=== PATIENT | female | born 1980 | race Asian ===

== ENCOUNTER 2017-12-01 00:30 | Inpatient (IN) | payer SELFPAY ==
[~2017-12-01] VITALS: Ht 158 cm; Wt 61.2 kg
[2017-12-01] MEDS ORDERED: LACTATED RINGERS 1,000 ML IV SCH (01:32)
[2017-12-01] MEDS ORDERED: CITRIC ACID/SODIUM CITRATE 30 ML UDC PO SCH (01:35)
[2017-12-01 01:54] LABS: BASOPHILS # (AUTO) 0.1 K/uL (0.00-0.22); BASOPHILS % (AUTO) 1.6 % (0.0-2.0); EOSINOPHILS % (AUTO) 0.4 % (0.0-4.0); HEMATOCRIT 34.7 % (36-48); HEMOGLOBIN 11.6 g/dL (12.0-16.0); LYMPHOCYTES # (AUTO) 1.5 K/uL (2.5-16.5); LYMPHOCYTES % (AUTO) 22.6 % (20.5-51.1); MEAN CORPUSCULAR HEMOGLOBIN 32 pg (27-31); MEAN CORPUSCULAR HGB CONC 33 g/dL (33-37); MEAN CORPUSCULAR VOLUME 96 fL (80-94); MONOCYTES # (AUTO) 0.5 K/uL (0.8-1.0); MONOCYTES % (AUTO) 8.2 % (1.7-9.3); NEUTROPHILS # (AUTO) 4.3 K/uL (1.8-7.7); NEUTROPHILS % (AUTO) 67.2 % (42.2-75.2); PLATELET COUNT (AUTO) 172 K/uL (140-450); RED BLOOD CELL COUNT(AUTO) 3.61 MIL/uL (4.20-5.40); RED CELL DISTRIBUTION WIDTH 14.2 % (11.6-13.7); WHITE BLOOD COUNT (AUTO) 6.4 K/uL (4.8-10.8)
[2017-12-01 02:08] LABS: APPEARANCE,URINE CLEAR (CLEAR); BILIRUBIN,URINE NEGATIVE (NEGATIVE); BLOOD, URINE NEGATIVE (NEGATIVE); COLOR,URINE YELLOW (YELLOW); LEUKOCYTE ESTERASE ,URINE NEGATIVE (NEGATIVE); NITRITE, URINE NEGATIVE (NEGATIVE); UGLUCOSE NEGATIVE (NEGATIVE)
[2017-12-01 02:26] LABS: RBC,URINE 0-5 (RARE) /HPF (0-5); WBC,URINE 0-5 (RARE) /HPF (0-5)
[2017-12-01 02:30] VITALS: BP 103/68
[2017-12-01] MEDS ORDERED: TRIMETHOBENZAMIDE 200 MG/2 ML SYR IM PRN (03:35)
[2017-12-01] MEDS ORDERED: METHYLERGONOVINE 0.2 MG/ML AMP IM PRN (03:35)
[2017-12-01] MEDS ORDERED: SIMETHICONE 80 MG TAB.CHEW PO PRN (03:35)
[2017-12-01] MEDS ORDERED: TEMAZEPAM 15 MG CAP PO PRN (03:35)
[2017-12-01] MEDS ORDERED: MEASLES, MUMPS, AND RUBELLA 1 VIAL SQVAC PRN (03:35)
[2017-12-01] MEDS ORDERED: BISA5TAB79 PO (03:52)
[2017-12-01] MEDS ORDERED: PREN-546 PO (03:52)
[2017-12-01] MEDS ORDERED: ePHEDrine 50 MG/ML VIAL IV ONE (05:50)
[2017-12-01] MEDS ORDERED: BUPIVACAINE-MPF 0.75% 10 ML VIAL INJ ONE (05:50)
[2017-12-01] MEDS ORDERED: OXYTOCIN 10 UNITS/ML VIAL IV ONE (05:50)
[2017-12-01] MEDS ORDERED: CITRIC ACID/SODIUM CITRATE 30 ML UDC ONE (05:53)
[2017-12-01] MEDS ORDERED: OXYTOCIN 10 UNITS/ML VIAL ONE (06:00)
[2017-12-01] MEDS ORDERED: MORPHINE PRES FREE 10 MG/10 ML AMP IV ONE (06:01)
[2017-12-01] MEDS ORDERED: fentaNYL 0.05 MG/ML VIAL ONE (06:01)
[2017-12-01] MEDS ORDERED: ceFAZolin 1,000 MG VIAL ONE (06:09)
[2017-12-01] MEDS ORDERED: ceFAZolin 1,000 MG VIAL IVP ONE (06:15)
[2017-12-01] MEDS ORDERED: ONDANSETRON 4 MG/2 ML VIAL IVP PRN ×2 (06:25)
[2017-12-01] MEDS ORDERED: NALBUPHINE 10 MG/ML AMP IVP PRN (06:25)
[2017-12-01] MEDS ORDERED: KETOROLAC 60 MG/2 ML VIAL IM PRN (06:25)
[2017-12-01] MEDS ORDERED: diphenhydrAMINE 50 MG/ML VIAL IVP PRN (06:25)
[2017-12-01] MEDS ORDERED: NALOXONE 0.4 MG/ML VIAL IVP PRN ×3 (06:25)
[2017-12-01] MEDS ORDERED: OXYTOCIN 20 UNITS/LR PREMIX 1,000 ML IV ONE (07:15)
[2017-12-01] MEDS ORDERED: ONDANSETRON 4 MG/2 ML VIAL ONE (07:15)
[2017-12-01 10:19] LABS: RAPID PLASMA REAGIN NON-REACTIVE (Non Reactiv)
[2017-12-01] MEDS: OXYTOCIN 20 UNITS in LACTATED RINGERS 1,000 ML IV SCH ×2 (11:52→19:48)
[2017-12-01] MEDS: oxyCODONE/APAP 5/325 MG 1 TAB TAB PO PRN (14:09)
[2017-12-01] MEDS: DOCUSATE SOD/SENNA 50/8.6 MG 1 TAB PO SCH (20:22)
[2017-12-02] MEDS ORDERED: OXYTOCIN 20 UNITS/LR PREMIX 1,000 ML IV ONE (00:58)
[2017-12-02] MEDS: OXYTOCIN 20 UNITS in LACTATED RINGERS 1,000 ML IV SCH (01:26)
[2017-12-02] MEDS ORDERED: OXYTOCIN 20 UNITS in LACTATED RINGERS 1,000 ML IV SCH (03:00)
[2017-12-02] MEDS ORDERED: FUROSEMIDE 20 MG/2 ML VIAL IVP SCH (03:25)
[2017-12-02 05:52] LABS: BASOPHILS % (AUTO) 0.5 % (0.0-2.0); EOSINOPHILS % (AUTO) 0.3 % (0.0-4.0); HEMATOCRIT 24.5 % (36-48); HEMOGLOBIN 8.4 g/dL (12.0-16.0); LYMPHOCYTES # (AUTO) 0.8 K/uL (2.5-16.5); LYMPHOCYTES % (AUTO) 9.5 % (20.5-51.1); MEAN CORPUSCULAR HEMOGLOBIN 33 pg (27-31); MEAN CORPUSCULAR HGB CONC 34 g/dL (33-37); MEAN CORPUSCULAR VOLUME 97 fL (80-94); MONOCYTES # (AUTO) 0.5 K/uL (0.8-1.0); MONOCYTES % (AUTO) 5.2 % (1.7-9.3); NEUTROPHILS # (AUTO) 7.6 K/uL (1.8-7.7); NEUTROPHILS % (AUTO) 84.5 % (42.2-75.2); PLATELET COUNT (AUTO) 141 K/uL (140-450); RED BLOOD CELL COUNT(AUTO) 2.54 MIL/uL (4.20-5.40); RED CELL DISTRIBUTION WIDTH 14.4 % (11.6-13.7); WHITE BLOOD COUNT (AUTO) 8.9 K/uL (4.8-10.8)
[2017-12-02] MEDS: oxyCODONE/APAP 5/325 MG 1 TAB TAB PO PRN (09:08)
[2017-12-02] MEDS: METOCLOPRAMIDE 10 MG TAB PO SCH ×4 (09:08→21:00)
--- NOTE | 2017-12-02 09:42 | NUR ---
PATIENT HAS BEEN SCREENED AND CATEGORIZED LOW NUTRITION RISK. PATIENT WILL BE SEEN WITHIN 7 DAYS OF ADMISSION. 12/08/[address]
[2017-12-02] MEDS: FERROUS SULFATE 325 MG TABEC PO SCH ×2 (13:37→17:17)
[2017-12-02] MEDS: IBUPROFEN 800 MG TAB PO PRN (13:37)
[2017-12-02] MEDS: HYDROcodone/APAP 5/325 MG 1 TAB TAB PO PRN (17:17)
[2017-12-02] MEDS: DOCUSATE SOD/SENNA 50/8.6 MG 1 TAB PO SCH (21:00)
[2017-12-03] MEDS: HYDROcodone/APAP 5/325 MG 1 TAB TAB PO PRN (07:55)
[2017-12-03] MEDS: FERROUS SULFATE 325 MG TABEC PO SCH ×3 (07:55→17:27)
[2017-12-03] MEDS: METOCLOPRAMIDE 10 MG TAB PO SCH ×4 (07:55→21:07)
[2017-12-03] MEDS: IBUPROFEN 800 MG TAB PO PRN ×2 (12:06→20:07)
[2017-12-04] MEDS: METOCLOPRAMIDE 10 MG TAB PO SCH ×2 (07:54→13:32)
[2017-12-04] MEDS: FERROUS SULFATE 325 MG TABEC PO SCH ×2 (07:54→13:32)
[2017-12-04] MEDS: IBUPROFEN 800 MG TAB PO PRN (07:55)
[2017-12-04] MEDS: HYDROcodone/APAP 5/325 MG 1 TAB TAB PO PRN (13:35)
== END 2017-12-04 14:50 | disposition home or self-care (01) | DRG 766 ==
LOC: MLD 00:30 → MFCC 08:00
PROVIDERS: ADMIT Obstetrics & Gynecology; ATTEND Obstetrics & Gynecology
PROC: 10D00Z1 Extraction of Products of Conception, Low, Open Approach (ICD-10-PCS; principal; 2017-11-30)
PROC: 30233S1 Transfusion of Nonautologous Globulin into Peripheral Vein, Percutaneous Approach (ICD-10-PCS; 2017-12-02)
PROC: 3E0234Z Introduction of Serum, Toxoid and Vaccine into Muscle, Percutaneous Approach (ICD-10-PCS; 2017-12-03)
DX: O34.211 Maternal care for low transverse scar from previous cesarean delivery (principal); O89.4 Spinal and epidural anesthesia-induced headache during the puerperium; Z37.0 Single live birth; Z3A.38 38 weeks gestation of pregnancy; Z23 Encounter for immunization
CPT/HCPCS: 36415; 51702; 81001; 85025; 86592; 86886; 86900; 86901; 90715; J0690; J1885; J2270; J2405; J2590; J3010; J3490; J7060; J7120; J8597